=== PATIENT | female | born 1990 | race American Indian/Alaskan Native ===

== ENCOUNTER 2019-06-10 07:35 | Emergency (ER) | payer SELFPAY ==
[2019-06-10 07:45] VITALS: BP 136/87
--- NOTE | 2019-06-10 08:11 | XRay Report ---
RIGHT SHOULDER 3 VIEW(S) INDICATION / CLINICAL INFORMATION: Fall/pain COMPARISON: None available. FINDINGS: BONES / JOINT(S): No acute fracture or subluxation. No significant arthritis. SOFT TISSUES: No significant abnormality. ADDITIONAL FINDINGS: None. Signer Name: Charlette Yanez MD Signed: 06/10/2019 8:07 AM Workstation Name: [id number]
--- NOTE | 2019-06-10 08:48 | Emergency Department Report ---
Upper Extremity - HPI Chief Complaint: Extremity Injury, Upper Stated Complaint: FALL/R ARM PAIN Time Seen by Provider: 06/10/19 08:17 Upper Extremity: Left Shoulder (was in the shower and slipped and fell, landed on her right shoulder last night. Has reported continued and worsening pain since the initial injury. Pain worse with range of motion and palpation. Pain is dull and throbbing. No swelling or bruising noted. No broken skin), Right Shoulder Occurred When: 1 Day Mechanism: Fall Symptoms: Yes Pain with Movement, Yes Limited Range of Movement, No Numbness, No Weakness, No Swelling, No Bruising/Ecchymosis, No Laceration or Abrasion ED Review of Systems ROS: Stated complaint: FALL/R ARM PAIN Other details as noted in HPI Comment: All other systems reviewed and negative ED Past Medical Hx - Past Medical History Previous Medical History?: No - Surgical History Past Surgical History?: No - Social History Smoking Status: Never Smoker Substance Use Type: None - Medications Home Medications: Home Medications Medication Instructions Recorded Confirmed Last Taken Type Ketorolac [Toradol] 10 mg PO Q6H PRN #15 tablet 06/10/19 Unknown Rx Upper Extremity Exam - Exam General: Vital signs noted. No distress. Alert and acting appropriately. Head and Torso: No HEENT Abnormality, No Neck Tenderness, No Chest/Lungs Abnormality, No Abdominal Tenderness, No Back Tenderness Shoulder Exam: Yes Shoulder Tenderness, No Clavicle Tenderness, No Normal Range of Motion in Shoulder (pain range of motion is limited due to pain. No deformity noted. No sulcus sign. No broken skin), No Shoulder Deformity, No AC Joint Tenderness Arm Exam: No Arm/Humerus Tenderness, No Arm Deformity Elbow: No Elbow Tenderness, No Normal Range of Motion in Elbow, No Elbow Deformity Forearm: No Forearm Tenderness, No Forearm Deformity, No Pain with Pronation, No Pain with Supination Wrist: Yes Normal ROM in Wrist, No Wrist Tenderness, No Wrist Deformity, No Snuffbox Tenderness, No Pain with Axial Thumb Compression Hand: Yes Normal ROM in Digit(s), No Hand Tenderness, No Hand Deformity, No Digit Tenderness, No Digit(s) Deformity, No Tendon Dysfunction CMS Exam: No Broken Skin, No Normal Distal Pulses, No Normal Capillary Refill, No Normal Distal Sensation ED Course Vital Signs 06/10/19 07:42 Temperature 98.5 F Pulse Rate 87 Respiratory 16 Rate Blood Pressure 136/87 ED Medical Decision Making - Radiology Data Radiology results: report reviewed (no fracture) - Medical Decision Making 28-year-old female status post fall, right shoulder x-rays are normal. Have a contusion to the shoulder region. Range of motion is limited due to pain, but she does have near full range of motion which was elicited on examination. Pain with palpation. There is no no crepitus. Appears is mobile, soft tissue injury to the treated accordingly with sling and ice. Also anti-inflammatory pain medication was offered, but she did decline Critical care attestation.: If time is entered above; I have spent that time in minutes in the direct care o f this critically ill patient, excluding procedure time. ED Disposition Clinical Impression: Shoulder contusion Disposition: DC-01 TO HOME OR SELFCARE Is pt being admited?: No Does the pt Need Aspirin: No Condition: Stable Instructions: Contusion in Adults (ED), RICE Therapy (ED), Ice Pack Application (ED) Referrals: PAIGE BUSTILLOS MD [Primary Care Provider] - 3-5 Days
== END 2019-06-10 09:15 | disposition home or self-care (01) ==
LOC: ED 07:35
DX: S40.011A Contusion of right shoulder, initial encounter (principal); W01.198A Fall on same level from slipping, tripping and stumbling with subsequent striking against other object, initial encounter; Y93.89 Activity, other specified; Y92.89 Other specified places as the place of occurrence of the external cause; Y99.8 Other external cause status
CPT/HCPCS: 99284